=== PATIENT | male | born 2005 | race Caucasian/White ===

== ENCOUNTER 2025-04-26 07:39 | Emergency (ER) | payer OTHER | END 2025-04-26 09:14 | disposition home or self-care (01) | LOC: MADERS 07:39 | DX: S62.111A Displaced fracture of triquetrum [cuneiform] bone, right wrist, initial encounter for closed fracture (principal); F17.290 Nicotine dependence, other tobacco product, uncomplicated; W18.30XA Fall on same level, unspecified, initial encounter; Y93.67 Activity, basketball | CPT/HCPCS: 99283 ==